=== PATIENT | male | born 1960 | race Caucasian/White ===

== ENCOUNTER 2020-03-21 06:03 | Day surgery (SDC) | payer BC ==
[~2020-03-21 06:03] MED LIST: Lactated Ringers 1,000 ML IV SCH; Lidocaine 1%/Sod Bicarbonate in NS 8.4% 1 ML Syringe IDERM PRN; Sodium Chloride 0.9% 10 ML Syringe FLUSH PRN
[2020-03-21] MEDS ORDERED: Bupivacaine 0.25% 10 ML SDV ONE (06:38)
[2020-03-21] MEDS ORDERED: Propofol 200 MG/20 ML SDV ONE (06:39)
[2020-03-21] MEDS ORDERED: Midazolam 1 MG/ML 2 ML SDV ONE (06:40)
[2020-03-21] MEDS ORDERED: fentaNYL 250 MCG/5 ML SDV ONE (06:40)
[2020-03-21] MEDS ORDERED: ceFAZolin 1 GM Vial ONE (06:41)
[2020-03-21] MEDS ORDERED: Lidocaine 1% 4 ML ONE (06:41)
--- NOTE | 2020-03-21 06:56 | PCM.PREANE ---
Preanesthetic Assessment - Procedure Proposed Procedure: Right knee arthroscopy - Anesthesia/Transfusion/Family Hx Anesthesia History: No Prior Anesthesia Transfusion History: No Prior Transfusion(s) - Review of Systems General: No Symptoms Pulmonary: No Symptoms Cardiovascular: No Symptoms Gastrointestinal: No Symptoms Neurological: No Symptoms Other: Reports: None - Physical Assessment NPO Status Date: 03/20/20 NPO Status Time: 22:00 Vital Signs: Last Vital Signs Temp 96.7 F L 03/21/20 05:59 Pulse 54 L 03/21/20 05:59 Resp 16 03/21/20 05:59 BP 120/83 03/21/20 05:59 Pulse Ox 98 03/21/20 05:59 ASA Class: 1 Mental Status: Alert & Oriented x3 Airway Class: Mallampati = 1 Dentition: Reports: Normal Dentition, [place](s) Thyro-Mental Finger Breadths: 3 Mouth Opening Finger Breadths: 3 ROM/Head Extension: Full Lungs: Clear to Auscultation, Normal Respiratory Effort Cardiovascular: Regular Rate, Regular Rhythm - Lab Values: Laboratory Last Values MRSA (PCR) Negative 03/19/20 09:44 - Allergies Allergies/Adverse Reactions: Allergies Allergy/AdvReac Type Severity Reaction Status Date / Time cat dander Allergy Sneezing Verified 03/21/20 06:31 wasps Allergy Airway Uncoded 03/21/20 06:31 Tightness - Acknowledgements Anesthesia Type Planned: General Anesthesia Pt an Appropriate Candidate for the Planned Anesthesia: Yes Alternatives and Risks of Anesthesia Discussed w Pt/Guardian: Yes Pt/Guardian Understands and Agrees with Anesthesia Plan: Yes PreAnesthesia Questionnaire HEENT History: Reports: Impaired Vision, Other (See Below) Other HEENT History: wears glasses Cardiovascular History: Reports: Other (See Below) Other Cardiovascular History: chest pain Respiratory History: Reports: None Gastrointestinal History: Reports: None Genitourinary History: Reports: None BURNER HAND History: Reports: None Musculoskeletal History: Reports: Other (See Below) Other Musculoskeletal History: reactive arthritis, right knee injury Neurological History: Reports: Headaches, Chronic, Other (See Below) Other Neuro History: idiopathic peripheral neuropathy Psychiatric History: Reports: None Endocrine/Metabolic History: Reports: None Hematologic History: Reports: None Immunologic History: Reports: None Oncologic (Cancer) History: Reports: None Dermatologic History: Reports: None - Infectious Disease History Infectious Disease History: Reports: None - Past Surgical History Head Surgeries/Procedures: Reports: None HEENT Surgical History: Reports: None Cardiovascular Surgical History: Reports: None Respiratory Surgical History: Reports: None GI Surgical History: Reports: EGD Male Surgical History: Reports: None Endocrine Surgical History: Reports: None Musculoskeletal Surgical History: Reports: None Oncologic Surgical History: Reports: None Dermatological Surgical History: Reports: None - SUBSTANCE USE Smoking Status *Q: Current Every Day Smoker Recreational Drug Use History: No - HOME MEDS Home Medications: Home Meds Diclofenac Sodium 1 dose TOP QID PRN 03/20/20 [History] Ibuprofen 400 mg PO Q6H PRN 03/20/20 [History] Lactobacillus Combination No.4 [Probiotic] 1 cap PO DAILY 03/20/20 [History] Magnesium 250 mg PO DAILY 03/20/20 [History] - CURRENT (IN HOUSE) MEDS Current Meds: Current Medications Epinephrine HCl (Adrenalin) 3 mg IRR ONETIME ULICES Stop: 03/21/20 13:00 Lactated Ringer's (Ringers, Lactated) 1,000 mls @ 125 mls/hr IV ASDIRECTED ULICES Stop: 03/21/20 23:00 Lidocaine/Sodium Bicarbonate (Buffered Lidocaine 1% In Ns 8.4%) 0.25 ml IDERM ONETIME PRN PRN Reason: Prior to IV Start Stop: 03/21/20 18:00 Sodium Chloride (Saline Flush) 10 ml FLUSH ASDIRECTED PRN PRN Reason: Keep Vein Open Stop: 03/21/20 18:00 Discontinued Medications Bupivacaine HCl (Sensorcaine-Mpf 0.25%) Confirm Administered Dose 10 ml .ROUTE .STK-MED ONE Stop: 03/21/20 06:39 Cefazolin Sodium (Ancef) Confirm Administered Dose 2 gm .ROUTE .STK-MED ONE Stop: 03/21/20 06:42 Fentanyl (Sublimaze) Confirm Administered Dose 250 mcg .ROUTE .STK-MED ONE Stop: 03/21/20 06:41 Lidocaine HCl (Xylocaine-Mpf 1%) Confirm Administered Dose 4 mls @ as directed .ROUTE .STK-MED ONE Stop: 03/21/20 06:42 Midazolam HCl (Versed 1 Mg/Ml) Confirm Administered Dose 4 mg .ROUTE .STK-MED ONE Stop: 03/21/20 06:41 Propofol (Diprivan 20 Ml) Confirm Administered Dose 200 mg .ROUTE .[facility] ONE Stop: 03/21/20 06:40
[2020-03-21] MEDS ORDERED: EPINEPHrine 1 MG/ML 30 ML MDV IRR SCH (07:00)
[2020-03-21] MEDS ORDERED: Ondansetron 4 MG/2 ML SDV ONE (07:15)
[2020-03-21] MEDS ORDERED: HYDROmorphone 0.5 MG/0.5 ML Syringe IVPUSH PRN (07:54)
[2020-03-21] MEDS ORDERED: fentaNYL 100 MCG/2 ML SDV IVPUSH PRN (07:54)
--- NOTE | 2020-03-21 08:07 | PCM.POSTAN ---
POST ANESTHESIA ASSESSMENT - MENTAL STATUS Mental Status: Somnolent - VITAL SIGNS Vital Signs: Last Vital Signs Temp 97 F 03/21/20 07:58 Pulse 54 L 03/21/20 05:59 Resp 11 L 03/21/20 07:58 BP 168/109 H 03/21/20 07:58 Pulse Ox 100 03/21/20 07:58 - RESPIRATORY Respiratory Status: Respiratory Rate WNL, Airway Patent (oral a/w #100), O2 Saturation Stable, Supplemental Oxygen - CARDIOVASCULAR CV Status: Pulse Rate WNL, Elevated Blood Pressure (is being monitored) - GASTROINTESTINAL GI Status: No Symptoms - PAIN Pain Score: 0 - POST OP HYDRATION Hydration Status: Adequate & Stable
[2020-03-21] MEDS ORDERED: Ketorolac 30 MG/ML SDV IVPUSH STA (08:09)
[2020-03-21] MEDS ORDERED: Acetaminophen/HYDROcodone 325-5 MG Tab PO SCH (09:10)
--- NOTE | 2020-03-21 09:11 | PCM.OPNOTE ---
- General Post-Op/Procedure Note Date of Surgery/Procedure: 03/21/20 Operative Procedure(s): right knee video arthrscopy with partial medial meniscectomy Pre Op Diagnosis: right knee medial meniscus tear Post-Op Diagnosis: Same Anesthesia Technique: General LMA, Local Primary Surgeon: Harlan Morse Anesthesia Provider: Chan Oneil Desilverizer: Manuela Garner in mLs: 2 Complications: None Condition: Good
--- NOTE | 2020-03-21 10:34 | PCM48HPAN ---
Post Anesthesia Note - EVALUATION WITHIN 48HRS OF ANESTHETIC Vital Signs in Normal Range: Yes Patient Participated in Evaluation: Yes Respiratory Function Stable: Yes Airway Patent: Yes Cardiovascular Function Stable: Yes Hydration Status Stable: Yes Pain Control Satisfactory: Yes Nausea and Vomiting Control Satisfactory: Yes Mental Status Recovered: Yes Vital Signs: Last Vital Signs Temp 97.6 F 03/21/20 08:59 Pulse 70 03/21/20 09:37 Resp 16 03/21/20 09:37 BP 142/95 H 03/21/20 09:37 Pulse Ox 98 03/21/20 09:37 - COMMENTS/OBSERVATIONS Free Text/Narrative:: No anesthesia complications noted, patient is ready to be discharged home
--- NOTE | 2020-03-25 21:48 | OR ---
DATE OF OPERATION: 03/21/2020 SURGEON: Harlan Morse MD OPERATION PERFORMED: Right knee video arthroscopy with partial medial meniscectomy. PREOPERATIVE DIAGNOSIS: Right knee medial meniscus tear. POSTOPERATIVE DIAGNOSIS: Right knee medial meniscus tear. ANESTHESIA: General LMA with local. ANESTHESIA PROVIDER: Nicole Arshad. MANAGER SYSTEM: Manuela Garner PA-C. ESTIMATED BLOOD LOSS: 3 mL. COMPLICATIONS: None. CONDITION: Stable. DESCRIPTION OF PROCEDURE: The patient was identified in the preoperative holding area. Proper site was marked and identified by the surgeon. The patient was taken back to the operating theater, where after adequate anesthesia, the patient's left lower extremity was placed in a well leg madrigal. Right lower extremity was placed in a C-clamp madrigal. A nonsterile tourniquet was applied. The foot of bed was then lowered. Right lower extremity was then sterilely prepped and draped in the usual sterile fashion. OR time-out was performed. The patient received 2 g IV Ancef. Right lower extremity was exsanguinated. Tourniquet was insufflated to 225 mmHg. Standard anterolateral portal incision was made and scope trocar was introduced. The patient had grade 1 chondromalacia of the patella as well as synovitis noted anteriorly. Attention was turned to the medial compartment. The patient was noted to have an entrapped small bucket-handle tear of the medial meniscus that was entrapped in the medial gutter. At this time, this was then reduced, and a partial medial meniscectomy of the entrapped fragment was undertaken. The patient had grade 1 chondromalacia, but no full-thickness cartilage defects. ACL was intact in the notch. Lateral compartment showed no chondromalacia changes, and no meniscal tear was noted. A partial synovectomy was performed of the anterior knee. Excess saline was drained. 3-0 nylon suture was used for closure of the skin. The patient had a sterile soft dressing applied and sent to PACU in stable condition. MMODAL /[id number]
== END 2020-03-21 10:15 | disposition home or self-care (01) ==
LOC: JD.SDS 06:03
PROVIDERS: ATTEND Orthopaedic Surgery
DX: S83.211A Bucket-handle tear of medial meniscus, current injury, right knee, initial encounter (principal); F17.220 Nicotine dependence, chewing tobacco, uncomplicated; Z01.812 Encounter for preprocedural laboratory examination; Z20.828 Contact with and (suspected) exposure to other viral communicable diseases; Z91.030 Bee allergy status; X58.XXXA Exposure to other specified factors, initial encounter
CPT/HCPCS: 29881; 87635; 87641; A9270; J0690; J1885; J2001; J2250; J2405; J2704; J3010; J3490; J7120; 01402; U0002